=== PATIENT | female | born 1980 | race Two or more races ===

== ENCOUNTER 2019-08-21 14:11 | Inpatient (IN) | payer OTHER ==
[~2019-08-21] VITALS: Ht 162.6 cm; Wt 172.4 kg
== END 2019-09-09 14:20 | disposition home or self-care (01) | DRG 743 ==
LOC: OB/GYN 09-06 06:39 → O/R 09-06 06:39 → SURG 09-06 07:30 → OB/GYN 09-06 15:17
PROVIDERS: ADMIT Obstetrics & Gynecology
PROC: 0UT70ZZ Resection of Bilateral Fallopian Tubes, Open Approach (ICD-10-PCS; 2019-09-06)
PROC: 0UT90ZZ Resection of Uterus, Open Approach (ICD-10-PCS; principal; 2019-09-06 08:30)
DX: N85.01 Benign endometrial hyperplasia (principal); N83.8 Other noninflammatory disorders of ovary, fallopian tube and broad ligament; E66.01 Morbid (severe) obesity due to excess calories